=== PATIENT | female | born 1965 | race Two or more races ===

== ENCOUNTER 2018-01-06 16:40 | Emergency (ER) | payer OTHER ==
[~2018-01-06] VITALS: Ht 154.9 cm; Wt 65.3 kg
[2018-01-06 16:56] VITALS: BP 209/95
== END 2018-01-06 18:50 | disposition home or self-care (01) ==
LOC: ER 16:57
DX: R51 Headache (principal); I10 Essential (primary) hypertension; R42 Dizziness and giddiness; S09.90XA Unspecified injury of head, initial encounter; Z88.0 Allergy status to penicillin; W51.XXXA Accidental striking against or bumped into by another person, initial encounter; Y93.89 Activity, other specified; Y92.89 Other specified places as the place of occurrence of the external cause; Y99.8 Other external cause status
CPT/HCPCS: 70450